=== PATIENT | male | born 1950 | race Caucasian/White ===

== ENCOUNTER 2025-01-21 07:25 | Outpatient (CLI) | payer MEDICARE, SELFPAY ==
--- NOTE | ~2025-01-21 | PE_ITS ---
EXAMINATION: PET_PETPSMAST_PT DATE: 01/21/2025 10:40 INDICATION: Prostate cancer. TECHNIQUE: 5.430 mCi of Ga-68 gozetotide was administered intravenously. Low dose computed tomography (CT) images were acquired from the base of the brain to the proximal thighs for attenuation correction and anatomic localization. Automated exposure control was employed. Dose-length product (DLP) was 1268 mGy- cm. Positron emission tomography (PET) images were acquired in the same distribution. COMPARISON: None FINDINGS: Head/neck: There are no pathologically enlarged lymph nodes. There is a 1.7 cm nodule in left thyroid lobe posteriorly with maximum SUV of 5.7. Chest: The lungs demonstrate mild atelectasis. No pleural effusion. The heart size is normal. There are coronary artery calcifications. Calcified right hilar and mediastinal lymph nodes are consistent with old granulomatous disease. Abdomen/pelvis/proximal thighs: There are cysts in the liver measuring up to 2.4 cm. The gallbladder is normal in size. Calcifications in the spleen are consistent with old granulomatous disease. There are calcifications of the pancreas, consistent with chronic pancreatitis. The adrenal glands are normal. There is a 1.9 cm mass containing fat in right kidney, consistent with an angiomyolipoma. There are cysts in the kidneys measuring up to 4.3 cm on the left. There are hemorrhagic cysts in the kidneys measuring up to 17 mm on the right. The prostate is severely enlarged. There is increased activity in the prostate bilaterally with maximum SUV of 25.3 on the right. There is a left inguinal hernia containing fat. There is diverticulosis of the colon without evidence of diverticulitis. There are no dilated loops of bowel. There are changes of appendectomy. There are no pathologically enlarged lymph nodes. There is no free intraperitoneal fluid. There are no sclerotic lesions of bone. IMPRESSION: 1. Severely enlarged prostate with increased activity, consistent with primary malignancy. 2. 1.7 cm nodule in the left thyroid lobe posteriorly with increased activity suspicious for metastatic disease. Reviewed, dictated and finalized at location E. IMPRESSION: 1. Severely enlarged prostate with increased activity, consistent with primary malignancy. 2. 1.7 cm nodule in the left thyroid lobe posteriorly with increased activity s uspicious for metastatic disease.
== END 2025-01-21 07:26 | disposition home or self-care (01) ==
LOC: ANHIMG 07:32
PROVIDERS: PCP Family Medicine Sports Medicine; Visit Provider Urology
DX: C61 Malignant neoplasm of prostate (principal); N40.0 Benign prostatic hyperplasia without lower urinary tract symptoms; E04.1 Nontoxic single thyroid nodule
CPT/HCPCS: 78815; A9596